=== PATIENT | female | born 1990 | race Caucasian/White ===

== ENCOUNTER 2016-10-09 17:04 | Emergency (ER) | payer OTHER ==
--- NOTE | ~2016-10-09 | CR94 ---
[facility]. [facility] A Service of [facility] & [facility] RADIOLOGY TEXT RESULTS PATIENT: JAYLYN RUBALCAVA LOCATION: SED : [birth year] UNIT #: [id number] AGE: [address]: Leon Berry MD SEX: F ORDER DR: [id number] [address] [address] [id number] E MR#: [id number] Acc #: [id number] NAME: JAYLYN RUBALCAVA : 1990 SEX: F STUDY DATE/TIME: 10/09/2016 17:37 UNIT: SED ROOM: STUDY DESCRIPTION: CR Elbow Min 3 Views Rt Attending Physician: Leon Berry M.D. Ordering Physician: Leon Berry M.D. Primary Care Physician: No Primary Care Physician MEDICAL IMAGING REPORT This report is preliminary unless electronic signature is present. EXAM Right elbow, 10/09/2016. CLINICAL HISTORY 26-year-old female with right elbow pain today. Request for retained foreign bodies. COMPARISON None. FINDINGS Three views of the right elbow demonstrate no acute fracture or dislocation. No joint effusion. No radiopaque foreign bodies. IMPRESSION No radiopaque foreign bodies. No acute bony abnormality. Dictated by... Emiliano Forrester M.D. THIS IS AN ELECTRONICALLY VERIFIED REPORT Emiliano Forrester M.D. at 10/10/2016 7:52 AM TO/ur TD: 10/09/2016 19:49 JOB #: [id number] MEDICAL IMAGING REPORT Page 1 of 1
--- NOTE | ~2016-10-09 | CR93 ---
[facility]. [facility] A Service of [facility] & [facility] RADIOLOGY TEXT RESULTS PATIENT: JAYLYN RUBALCAVA LOCATION: SED : [birth year] UNIT #: [id number] AGE: [address]: Leon Berry MD SEX: F ORDER DR: [id number] [address] [address] [id number] E MR#: [id number] Acc #: [id number] NAME: JAYLYN RUBALCAVA : 1990 SEX: F STUDY DATE/TIME: 10/09/2016 17:37 UNIT: SED ROOM: STUDY DESCRIPTION: CR Elbow Min 3 Views Lt Attending Physician: Leon Berry M.D. Ordering Physician: Leon Berry M.D. Primary Care Physician: No Primary Care Physician MEDICAL IMAGING REPORT This report is preliminary unless electronic signature is present. EXAM Left elbow 10/09/2016 HISTORY 18-year-old female with left elbow pain beginning today. Order requests evaluation for needle foreign bodies. COMPARISON None. FINDINGS 3 views of the left elbow demonstrates no acute fracture or dislocation. No joint effusion. No retained radiopaque foreign bodies. IMPRESSION No foreign bodies identified. No acute bony abnormality Dictated by... Emiliano Forrester M.D. THIS IS AN ELECTRONICALLY VERIFIED REPORT Emiliano Forrester M.D. at 10/10/2016 7:52 AM TO/noah TD: 10/09/2016 19:54 JOB #: [id number] MEDICAL IMAGING REPORT Page 1 of 1
[~2016-10-09 17:04] MED LIST: BACTRIM DS TABL1 TA1; BACTRIM DS TABL1 TA1 PO; CIPRO PO; ELIMITE60 G1 TOP; FLAGYL PO; NAPROSYN500 MG PO; NO MEDICATIONS; VICODIN 5/1 TAB 5/50 PO
[2016-10-09] MEDS ORDERED: ABILIFY (17:25)
[2016-10-09] MEDS ORDERED: TRAZODONE PO (17:25)
== END 2016-10-09 17:58 | disposition home or self-care (01) ==
LOC: SED 17:04
DX: L02.512 Cutaneous abscess of left hand (principal); L02.511 Cutaneous abscess of right hand; F19.10 Other psychoactive substance abuse, uncomplicated; F17.200 Nicotine dependence, unspecified, uncomplicated; Z88.0 Allergy status to penicillin; Z79.899 Other long term (current) drug therapy
CPT/HCPCS: 73080; 99283

== ENCOUNTER 2016-11-08 23:03 | Emergency (ER) | payer OTHER ==
[~2016-11-08] VITALS: Ht 162.6 cm; Wt 61.2 kg
--- NOTE | ~2016-11-08 | EKG ---
PATIENT: JAYLYN RUBALCAVA UNIT #: [id number] Ventricular Rate: 116 BPM Atrial Rate: 116 BPM P-R Interval: 136 ms QRS Duration: 78 ms Q-T Interval: 326 ms QTC Calculation(Bezet): 453 ms P Clay: 55 degrees Calculated R Clay: 42 degrees Calculated T Clay: 32 degrees Diagnosis Line: Sinus tachycardia Diagnosis Line: Baseline wander Borderline ECG Diagnosis Line: No previous ECGs available Diagnosis Line: Confirmed by LALO ARAUJO MD ([id number]) on 11/09/2016 Diagnosis Line: 5:49:52 PM INTERPRETING MD: GAYLE RIVER
--- NOTE | ~2016-11-08 | CT125 ---
[facility] A Service of [facility] RADIOLOGY TEXT RESULTS PATIENT: JAYLYN RUBALCAVA LOCATION: [facility] : [birth year] UNIT #: [id number] AGE: [address]: Johnny Conde MD SEX: F ORDER DR: [id number] [id number] [place], [place] [address] [id number] E MR#: [id number] Acc #: [id number] NAME: JAYLYN RUBALCAVA : 1990 SEX: F STUDY DATE/TIME: 11/09/2016 2:54 UNIT: ARIC ROOM: STUDY DESCRIPTION: CT Upper Ext Lt W Cont Attending Physician: Johnny Conde M.D. Ordering Physician: Treva Chen M.D. Primary Care Physician: Primary Care Physician No MEDICAL IMAGING REPORT This report is preliminary unless electronic signature is present EXAM CT left upper extremity with IV contrast HISTORY IV drug use and left arm abscess with pain for [address] examination was performed with one or more of the following radiation dose reduction techniques: automatic exposure control, adjustment of mA and/or kV according to patient size, and iterative reconstruction. CT left upper extremity was performed from the distal upper arm to the proximal forearm, including the elbow. A skin marker was placed over the region of clinical concern along the medial margin of the antecubital fossa. There is focal subcutaneous stranding in the region of clinical concern and skin thickening over the antecubital fossa, over a maximal diameter of close to 2 cm, compatible with cellulitis. No abscess. No focal fluid collection. No soft tissue gas or opaque soft tissue foreign body. IMPRESSION Focal superficial cellulitis in the medial antecubital fossa over a diameter of close to 2 cm in the region of clinical concern as indicated by an overlying skin marker. No abscess. No focal fluid collection. Dictated by... Kiko Canchola M.D. THIS IS AN ELECTRONICALLY VERIFIED REPORT Kiko Canchola M.D. at 11/09/2016 3:58 PM [facility] A Service of [facility] RADIOLOGY TEXT RESULTS PATIENT: JAYLYN RUBALCAVA LOCATION: [facility] : [birth year] UNIT #: [id number] AGE: [address]: Johnny Conde MD SEX: F ORDER DR: LOULOU/jabari TD: 11/09/2016 07:28 JOB #: [id number] MEDICAL IMAGING REPORT Page 1 of 1 COPY
--- NOTE | ~2016-11-08 | CR72 ---
[facility] A Service of [facility] & [facility] RADIOLOGY TEXT RESULTS PATIENT: JAYLYN RUBALCAVA LOCATION: [facility] : [birth year] UNIT #: [id number] AGE: [address]: Johnny Conde MD SEX: F ORDER DR: [id number] [facility] [address] [place], [place] [address] [id number] E MR#: [id number] Acc #: [id number] NAME: JAYLYN RUBALCAVA : 1990 SEX: F STUDY DATE/TIME: 11/09/2016 0:51 UNIT: ARIC ROOM: STUDY DESCRIPTION: CR Chest Single View Portable Attending Physician: Johnny Conde M.D. Ordering Physician: Treva Chen M.D. Primary Care Physician: No Primary Care Physician MEDICAL IMAGING REPORT This report is preliminary unless electronic signature is present EXAM Portable chest HISTORY Cough and congestion for 4 days. FINDINGS Cardiac size and pulmonary vascularity are normal. Mild right thoracic curve. Small calcified granuloma lateral left mid lung. No airspace infiltrates or effusions. IMPRESSION no acute findings Dictated by... Kiko Canchola M.D. THIS IS AN ELECTRONICALLY VERIFIED REPORT Kiko Canchola M.D. at 11/09/2016 3:51 PM LOULOU/caryn TD: 11/09/2016 06:30 JOB #: [id number] MEDICAL IMAGING REPORT Page 1 of 1 COPY
[~2016-11-08 23:03] MED LIST changes: +ABILIFY; +TRAZODONE PO
[2016-11-09 01:09] LABS: POC - CKMB <1.0 ng/mL (0.0-7.9); POC - TROPONIN <0.05 ng/mL (<=0.05)
[2016-11-09 01:10] LABS: BASOPHIL# 0.1 X10e3 (0-0.3); BASOPHIL% 0.6 % (0-2.5); EOSINOPHIL% 0.3 % (0.0-7.0); HEMATOCRIT 42.4 % (35.0-45.0); HEMOGLOBIN 14.1 gm/dL (12.0-16.0); LYMPHOCYTE# 2.3 X10e3 (1.0-3.5); MEAN CELL VOLUME 83.1 FL (83-96); MEAN CORPUSCULAR HEMOGLOBIN 27.6 PG (28-34); MEAN CORPUSCULAR HGB CONC 33.2 g/dL (30-36); MEAN PLATELET VOLUME 9.2 FL (6.5-11.5); MONOCYTE# 1.3 X10e3 (0-1.0); MONOCYTE% 8.4 % (3.0-12.0); NEUTROPHIL# 11.4 X10e3 (1.5-7.1); NEUTROPHIL% 75.7 % (40-75); PLATELET COUNT 301 X10e3 (140-420); RED CELL DISTRIBUTION WIDTH 14.8 % (11.0-15.5)
[2016-11-09 01:18] LABS: DIFF IND NO
[2016-11-09 01:37] LABS: ALBUMIN SERUM 4.4 g/dL (3.5-5.0); ALCOHOL BLOOD <5 mg/dL (0); ALKALINE PHOSPHATASE 88 U/L (32-92); ALT (SGPT) 62 U/L (10-40); AST (SGOT) 56 U/L (10-42); BILIRUBIN, DIRECT 0.1 mg/dL (0.0-0.2); BILIRUBIN,INDIRECT 0.3 mg/dL (0.0-0.9); BILIRUBIN,TOTAL 0.4 mg/dL (0.2-2.0); BLOOD UREA NITROGEN 10 mg/dL (9-23); BUN/CREATININE RATIO 11.11; CALCIUM SERUM 9.5 mg/dL (8.4-10.2); CARBON DIOXIDE 24 mmol/L (22-31); CHLORIDE 103 mmol/L (100-111); CREATININE SERUM 0.9 mg/dL (0.6-1.4); GLOM FILT RATE Estimated 87.1 mL/min (>60); GLUCOSE FASTING 112 mg/dL (70-110); POTASSIUM 3.4 mmol/L (3.5-5.1); SODIUM 138 mmol/L (135-145)
[2016-11-09 02:22] LABS: URINE SOURCE CLEAN CATCH
[2016-11-09 02:31] LABS: URINE APPEARANCE TURBID; URINE BILIRUBIN NEG (NEG); URINE BLOOD NEG (NEG); URINE COLOR DK YELLOW; URINE GLUCOSE NEG (NEG); URINE KETONE NEG (NEG); URINE LEUKOCYTE ESTERASE 1+ (NEG); URINE NITRATE NEG (NEG); URINE PROTEIN TRACE (NEG); URINE SPECIFIC GRAVITY 1.024 (1.003-1.035)
[2016-11-09 02:34] LABS: CULTURE INDICATED? YES; URINE BACTERIA AUWI 1+ (NEGATIVE); URINE SQUAMOUS EPITHELIAL CELL MOD /[HPF]
[2016-11-09 02:44] LABS: URINE CRYSTALS CALCIUM OXALATE /[HPF]
[2016-11-09 02:51] LABS: AMPHETAMINE POS (NEG); BARBITURATES NEG (NEG); BENZODIAZEPINES NEG (NEG); COCAINE NEG (NEG); MARIJUANA POS (NEG); OPIATES POS (NEG); TRICYCLIC ANTIDEPRESSANTS NEG (NEG); U METHADONE NEG (NEG)
== END 2016-11-09 04:42 | disposition home or self-care (01) ==
LOC: CED 23:03
PROVIDERS: Emergency Medicine
DX: L02.414 Cutaneous abscess of left upper limb (principal); L03.114 Cellulitis of left upper limb; I80.9 Phlebitis and thrombophlebitis of unspecified site; F15.10 Other stimulant abuse, uncomplicated; F12.10 Cannabis abuse, uncomplicated; F11.10 Opioid abuse, uncomplicated; F17.200 Nicotine dependence, unspecified, uncomplicated; Z88.0 Allergy status to penicillin; Z88.1 Allergy status to other antibiotic agents; Z79.899 Other long term (current) drug therapy
CPT/HCPCS: 36415; 71010; 73201; 80048; 80076; 80307; 81003; 82553; 83605; 83880; 84484; 84703; 85025; 87040; 87086; 93005; 96361; 96374; 99284; G0480; J1885; J3370; Q9967